=== PATIENT | male | born 1980 | race Two or more races ===

== ENCOUNTER 2017-06-23 20:05 | Emergency (ER) | payer OTHER ==
[~2017-06-23] VITALS: Ht 172.7 cm; Wt 59.9 kg
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
[2017-06-23 20:31] VITALS: BP 130/80
[2017-06-23] MEDS ORDERED: IBUPROFEN600 MG ORAL (20:43)
[2017-06-23] MEDS ORDERED: NORCO 5-325 TA1 EAC1 ORAL (20:43)
[2017-06-23 21:05] VITALS: BP 130/80
== END 2017-06-23 20:56 | disposition home or self-care (01) ==
LOC: EMR 20:26
DX: M54.6 Pain in thoracic spine (principal); M25.511 Pain in right shoulder; Z88.0 Allergy status to penicillin
CPT/HCPCS: 99284